=== PATIENT | male | born 1940 | race Hispanic/Latino ===

== ENCOUNTER 2018-10-27 22:16 | Emergency (ER) | payer OTHER ==
[2018-10-27 22:44] LABS: BASOPHILS % (AUTO) 0.7 % (0.0-5.0); EOSINOPHILS % (AUTO) 3.1 % (0.0-8.0); HEMATOCRIT 35.1 % (42-54); LYMPHOCYTES % (AUTO) 6.2 % (21.0-51.0); MEAN CORPUSCULAR HEMOGLOBIN 31.6 pg (27.0-33.0); MEAN CORPUSCULAR HGB CONC 33.6 g/dL (32.0-36.0); MONOCYTES % (AUTO) 7.4 % (3.0-13.0); NEUTROPHILS % (AUTO) 82.6 % (40.0-77.0); PLATELET COUNT (AUTO) 84 K/uL (130-400); RED BLOOD CELL COUNT(AUTO) 3.74 MIL/uL (4.50-6.20); RED CELL DISTRIBUTION WIDTH 22.3 % (11.0-15.5); WHITE BLOOD COUNT (AUTO) 9.6 K/uL (4.8-10.8)
[2018-10-27 23:01] LABS: INR 2.16 (0.85-1.15); PARTIAL THROMBOPLASTIN TIME 50.1 SEC (26.3-35.5); PROTHROMBIN TIME 22.3 SEC (9.6-11.6)
[2018-10-27 23:02] LABS: CREATININE 2.9 mg/dL (0.5-1.5); POTASSIUM 4.6 mmol/L (3.5-5.1)
[2018-10-27 23:15] LABS: ALBUMIN 1.4 g/dL (3.5-5.0); TOTAL PROTEIN, SERUM 5.3 g/dL (6.0-8.3)
[2018-10-27 23:19] LABS: BILIRUBIN,TOTAL 17.4 mg/dL (0.2-1.0)
[2018-10-28 00:12] LABS: PLATELET MORPHOLOGY COMMENT DECREASED
== END 2018-10-28 01:03 | disposition home or self-care (01) ==
LOC: EDH 22:16
DX: K72.10 Chronic hepatic failure without coma (principal)
CPT/HCPCS: 36415; 74176; 76705; 80053; 82140; 83690; 84484; 85025; 85610; 85730; 93005

== ENCOUNTER 2018-10-30 10:05 | Inpatient (IN) | payer OTHER | END 2018-10-30 17:55 | disposition EXP | LOC: EDH 10:05 → EDHIP 16:27 ==